=== PATIENT | female | born 1985 | race Two or more races ===

== ENCOUNTER 2017-07-03 13:28 | Inpatient (IN) | payer OTHER ==
[~2017-07-03] VITALS: Ht 180.3 cm; Wt 58.0 kg
[~2017-07-03 13:28] MED LIST: ACIDOPHILUS1 EAC3 PO
[2017-07-10] MEDS ORDERED: PROTONIX40 MG PO (09:34)
== END 2017-07-10 11:45 | disposition home or self-care (01) | DRG 440 ==
LOC: ER 13:28 → MEDI 19:02
PROC: BW40ZZZ Ultrasonography of Abdomen (ICD-10-PCS; 2017-07-03)
PROC: BW21Y0Z Computerized Tomography (CT Scan) of Abdomen and Pelvis using Other Contrast, Unenhanced and Enhanced (ICD-10-PCS; 2017-07-08)
PROC: 0DB68ZX Excision of Stomach, Via Natural or Artificial Opening Endoscopic, Diagnostic (ICD-10-PCS; principal; 2017-07-09)
DX: K85.80 Other acute pancreatitis without necrosis or infection (principal); E86.0 Dehydration; K52.89 Other specified noninfective gastroenteritis and colitis; K59.09 Other constipation

== ENCOUNTER 2018-01-17 19:54 | Emergency (ER) | payer OTHER ==
[~2018-01-17] VITALS: Ht 157.5 cm; Wt 59.0 kg
[~2018-01-17 19:54] MED LIST changes: +PROTONIX40 MG PO
== END 2018-01-17 22:20 | disposition home or self-care (01) ==
LOC: ER 19:54
DX: M75.51 Bursitis of right shoulder (principal)

== ENCOUNTER 2021-03-01 16:35 | Emergency (ER) | payer OTHER ==
[~2021-03-01] VITALS: Ht 154.9 cm; Wt 60.3 kg
[2021-03-01] MEDS ORDERED: EC-NAPROSYN375 MG PO (20:37)
[2021-03-01] MEDS ORDERED: SKELAXIN800 MG PO (20:37)
[2021-03-01] MEDS ORDERED: NASAL MIST126 ML (20:44)
== END 2021-03-02 | disposition home or self-care (01) ==
LOC: ER 16:35
DX: R07.89 Other chest pain (principal); Z20.822 Contact with and (suspected) exposure to COVID-19

== ENCOUNTER 2024-07-30 19:56 | Emergency (ER) | payer OTHER ==
[~2024-07-30] VITALS: Ht 154.9 cm; Wt 61.7 kg
[~2024-07-30 19:56] MED LIST changes: +EC-NAPROSYN375 MG PO; +NASAL MIST126 ML; +SKELAXIN800 MG PO
[2024-07-30] MEDS ORDERED: HYOSCYAMINE SULFATE 0.125 MG TAB.SUBL SL STA (21:34)
[2024-07-30] MEDS ORDERED: LACTOBACILLUS ACIDOPHILUS 1 CAP CAP PO STA (21:34)
[2024-07-30] MEDS ORDERED: HYOSCYAMINE SULFATE 0.125 MG TAB.SUBL ONE (21:39)
[2024-07-30] MEDS ORDERED: LACTOBACILLUS ACIDOPHILUS 1 CAP CAP PO ONE (21:39)
[2024-07-30 21:54] LABS: HEMATOCRIT 35.6 % (36.0-45.00); HEMOGLOBIN 11.7 g/dL (12.0-15.00); MEAN CELL VOLUME 78.2 fL (80.00-100.00); MEAN CORPUSCULAR HEMOGLOBIN 25.8 pg (27.00-32.0); MEAN CORPUSCULAR HGB CONC 32.9 g/dl (32.0-36.0); PLATELET COUNT 248 K/uL (150-450); RED BLOOD COUNT 4.55 M/uL (4.00-6.00); RED CELL DISTRIBUTION WIDTH 13.5 % (11.5-14.5)
[2024-07-30 22:12] LABS: CALCIUM 9.6 mg/dL (8.5-10.1); CREATININE SERUM 0.8 mg/dL (0.55-1.02); GFR 79.44; POTASSIUM 3.7 mEq/L (3.5-5.1)
[2024-07-30 22:58] LABS: PH,URINE 7.5 (5.0-8.0); URINE APPEARANCE Clear; URINE BILIRRUBIN Negative (NEGATIVE); URINE BLOOD Negative; URINE COLOR Yellow; URINE GLUCOSE Negative (NEGATIVE); URINE LEUKOCYTE Negative; URINE NITRATE Negative; URINE PROTEIN Trace (NEGATIVE)
[2024-07-30 23:16] LABS: URINE BACTERIA 101.5 uL (0.0-1933); URINE EPITHELIAL CELLS 11.3 uL (0.0-38.8); URINE KETONE 40 (NEGATIVE); URINE RBC 32.7 uL (0.0-20.8); URINE WBC 4.5 uL (0.0-23.2)
== END 2024-07-31 00:04 | disposition home or self-care (01) ==
LOC: ER 19:59
PROVIDERS: General Practice
DX: R10.84 Generalized abdominal pain (principal)

== ENCOUNTER 2025-04-24 16:16 | Emergency (ER) | payer OTHER ==
[~2025-04-24] VITALS: Ht 154.9 cm; Wt 61.2 kg
[2025-04-24] MEDS ORDERED: LABETALOL HCL 100 MG/20 ML ML IV STA (17:41)
[2025-04-24] MEDS ORDERED: NITROGLYCERIN 0.4 MG TAB.SUBL SL SCH (17:45)
[2025-04-24] MEDS ORDERED: LABETALOL HCL 100 MG/20 ML ML ONE (17:55)
[2025-04-24 18:25] LABS: BASO % 0.7 % (0.1-1.2); EOS # 0.10 (0.04-0.54); EOS % 1.4 % (0.7-7.0); LYMPH # 2.60 (1.18-3.74); LYMPH % 36.5 % (19.3-53.1); MEAN PLATELET VOLUME 10.70 fl (9.4-12.4); MONO # 0.47 (0.24-0.82); MONO % 6.6 % (4.7-12.5); NEUT # 3.89 (1.56-6.13); NEUT % 54.7 % (34.0-71.1); RED CELL DISTRIBUTION WIDTH 13.2 % (11.6-14.4)
[2025-04-24] MEDS ORDERED: CLONIDINE HCL 0.1 MG TABLET PO ONE ×2 (18:33→18:45)
[2025-04-24 18:51] LABS: D DIMER 0.27 MG/L
[2025-04-24 18:52] LABS: INR 1.04
[2025-04-24 19:11] LABS: ALT/SGPT 20 U/L (12-78); AST/SGOT 18 U/L (15-37); BILIRUBIN TOTAL 0.35 mg/dL (0.3-1.2); BUN CREA RATIO 13 (7.0-25.0); CREATININE SERUM 0.71 mg/dL (0.55-1.02); GFR 91.17; GLOBULINA 3.0 G/DL (2.4-3.5); GLUCOSE FASTING 89 mg/dL (65-100); OSMOLALITY SERUM 281 MOSM/KG (275-295)
[2025-04-24 19:55] LABS: URINE APPEARANCE Clear; URINE BILIRRUBIN Negative (NEGATIVE); URINE BLOOD Negative; URINE COLOR Yellow; URINE GLUCOSE Negative (NEGATIVE); URINE KETONE Negative (NEGATIVE); URINE LEUKOCYTE Negative; URINE NITRATE Negative; URINE PROTEIN Negative (NEGATIVE); URINE UROBILINOGEN 0.2 E.U./dl
[2025-04-24 19:59] LABS: URINE BACTERIA 322.7 uL (0.0-1933); URINE EPITHELIAL CELLS 12.6 uL (0.0-38.8); URINE RBC 11.4 uL (0.0-20.8); URINE WBC 2.0 uL (0.0-23.2)
[2025-04-24 20:02] LABS: URINE CAST 0.00 uL (0.0-1.40)
[2025-04-24] MEDS ORDERED: NITROGLYCERIN0.4 MG SL (23:04)
[2025-04-25 00:28] VITALS: BP 119/82; O2SAT 100
== END 2025-04-25 00:28 | disposition home or self-care (01) ==
LOC: ER 16:16
PROVIDERS: Physician Assistant Medical
DX: I20.89 Other forms of angina pectoris (principal)